=== PATIENT | female | born 1945 | race Caucasian/White ===

== ENCOUNTER 2019-08-13 11:17 | Emergency (ER) | payer MEDICARE ==
[2019-08-13] MEDS ORDERED: ACETAMINOPHEN EXTRA STRENGTH 500 MG TABLET ONE (12:15)
[2019-08-13] MEDS ORDERED: DEXAMETHASONE SOD PHOSPHATE 10MG/ML 1ML VIAL ONE (12:15)
== END 2019-08-13 12:47 | disposition home or self-care (01) ==
LOC: EDH 11:17
DX: M25.572 Pain in left ankle and joints of left foot (principal); M06.9 Rheumatoid arthritis, unspecified; I10 Essential (primary) hypertension; Z88.1 Allergy status to other antibiotic agents; Z88.5 Allergy status to narcotic agent
CPT/HCPCS: 73600; 96372; 99284; J1100